=== PATIENT | female | born 1960 | race Caucasian/White ===

== ENCOUNTER 2018-02-20 15:29 | Outpatient (CLI) | payer OTHER ==
--- NOTE | 2018-02-23 09:38 | MRI ---
MRI RIGHT ANKLE WITHOUT CONTRAST: HISTORY: Injury. Rolled ankle. Sprain. FINDINGS: LIGAMENTS: The ATFL is thickened, as well as the PTFL and the syndesmotic membrane. Chronic rupture of the ATFL, complete. The CFL is thickened and wavy. There is contusion of the deep deltoid ligament. TENDONS: The Achilles tendon is intact. The extensor tendons are intact. There is a normal appeara nce of the flexor tendons. There is mild flattening of the peroneus brevis tendon without a definite longitudinal split tear. There is marked fluid within the flexor hallucis longus tendon sheath, jus t beyond the knot of Balbir. MUSCLES: There is edema of the soleus, as well as the peroneus brevis and longus musculature, and al so the flexor hallucis longus muscle. BONES: There is an intraarticular joint depression type fracture of the calcaneus, extending to the posterior subtalar joint. There is some loss of normal calcaneal angle. The fracture line does exte nd to the calcaneocuboid joint. There is also edema within the lateral process of the talus. IMPRESSION: 1. Intraarticular joint type depression fracture of the calcaneus with moderate loss of the normal c alcaneal angle. The fracture extends into the posterior subtalar joint, as well as the calcaneocuboi d joint. Extensive reactive edema of the talus. 2. Mild flattening of the peroneus brevis tendon, at the level of the lateral malleolus, without a d efinite longitudinal split tear. 3. Rupture anterior talofibular ligament and thickened calcaneofibular ligament. 4. Abnormally thickened syndesmotic ligaments, also suggesting prior injury. POS: [facility]
== END 2018-02-20 15:30 | disposition home or self-care (01) ==
LOC: TBSIIMAG 15:29
PROVIDERS: ATTEND Family Medicine
DX: M25.571 Pain in right ankle and joints of right foot (principal); S93.491D Sprain of other ligament of right ankle, subsequent encounter; S92.001A Unspecified fracture of right calcaneus, initial encounter for closed fracture; M67.971 Unspecified disorder of synovium and tendon, right ankle and foot; M24.271 Disorder of ligament, right ankle